=== PATIENT | male | born 1995 | race Caucasian/White ===

== ENCOUNTER 2018-07-31 15:15 | Emergency (ER) | payer SELFPAY ==
[2018-07-31] MEDS ORDERED: Ondansetron 4 MG/2 ML SDV IVPUSH ONE (15:53)
[2018-07-31] MEDS ORDERED: Sodium Chloride 0.9% 1,000 ML IV ONE (15:53)
[2018-07-31] MEDS ORDERED: Ketorolac 30 MG/ML SDV IVPUSH ONE (15:53)
[2018-07-31] MEDS ORDERED: Alum Hydroxide/Mag Hydroxide 30 ML, Lidocaine 2% 15 ML PO ONE ×2 (16:04)
--- NOTE | 2018-07-31 16:08 | EDM.PDOC ---
ED HPI GENERAL MEDICAL PROBLEM - General Chief Complaint: Gastrointestinal Problem Stated Complaint: PUKING BLOOD Time Seen by Provider: 07/31/18 15:30 Source of Information: Reports: Patient, Family History Limitations: Reports: No Limitations - History of Present Illness INITIAL COMMENTS - FREE TEXT/NARRATIVE: c/o vomiting blood here with girlfriend and mother works rotating shifts at [employer], went to bed at 7p last night, up at 4a, mild epigastric discomfort on awakening drank 2 beers at home with a friend, ate some soup, at 7a he had nausea and inc' d epigastric discomfort, he asked his friend to go home and he laid down awoke at 11a, V x 2, soup came up, a short while later he vomiting dark red fluid that he thought was blood, had a second smaller emesis, now comes to ED has slight N now, still epigastric discomfort had a small BM today, yellow in color has a formed brown BM 1-2x/d no prior GI problems he thinks he has an ulcer from what he read on the internet Upper abdomen/epigastric Pain Score (Numeric/FACES): 5 - Related Data Allergies Allergy/AdvReac Type Severity Reaction Status Date / Time No Known Allergies Allergy Verified 07/31/18 15:28 Home Meds: Home Meds Metoclopramide HCl 10 mg PO Q6H PRN #10 tablet 07/31/18 [Rx] Omeprazole 20 mg PO DAILY #14 tablet. 07/31/18 [Rx] Past Medical History Respiratory History: Reports: COPD Genitourinary History: Reports: UTI, Recurrent Other Genitourinary History: freq UTI as child, none now Musculoskeletal History: Reports: Fracture Other Musculoskeletal History: hx fx jaw, R 5th digit, Psychiatric History: Reports: ADD, Addiction, Anxiety, Depression, Panic Attack , Suicide Attempt - Infectious Disease History Infectious Disease History: Reports: Chicken Pox - Past Surgical History GI Surgical History: Reports: Hernia Repair/Other Social & Family History - Family History Family Medical History: Noncontributory - Tobacco Use Smoking Status *Q: Current Every Day Smoker Years of Tobacco use: 10 Packs/Tins Daily: 0.3 - Caffeine Use Caffeine Use: Reports: Coffee, Energy Drinks, Soda, Tea - Alcohol Use Days Per Week of Alcohol Use: 1 Number of Drinks Per Day: 10 Total Drinks Per Week: 10 - Recreational Drug Use Recreational Drug Use: Yes Drug Use in Last 12 Months: Yes Recreational Drug Type: Reports: Marijuana/Hashish Recreational Drug Use Frequency: Daily ED ROS GENERAL - Review of Systems Review Of Systems: See Below Constitutional: Reports: No Symptoms HEENT: Reports: No Symptoms Respiratory: Reports: No Symptoms Cardiovascular: Reports: No Symptoms Endocrine: Reports: No Symptoms GI/Abdominal: Reports: Hematemesis, Nausea, Vomiting : Reports: No Symptoms Musculoskeletal: Reports: No Symptoms Skin: Reports: No Symptoms Neurological: Reports: No Symptoms Psychiatric: Reports: No Symptoms Hematologic/Lymphatic: Reports: No Symptoms Immunologic: Reports: No Symptoms ED EXAM, GI/ABD - Physical Exam Exam: See Below Exam Limited By: No Limitations General Appearance: Alert, WD/WN, No Apparent Distress, Other (alert, nonill, moves easily) Ears: Normal External Exam Nose: Normal Inspection, Normal Mucosa, No Blood Throat/Mouth: Normal Inspection, Normal Lips, Normal Teeth, Normal Gums, Normal Oropharynx, Normal Voice, No Airway Compromise, Other (slight pink flush to posterior pillars b/l c/w with minor irritation from prior emesis) Head: Atraumatic, Normocephalic Neck: Normal Inspection, Supple, Non-Tender, Full Range of Motion Respiratory/Chest: No Respiratory Distress, Lungs Clear, Normal Breath Sounds, No Accessory Muscle Use, Chest Non-Tender Cardiovascular: Regular Rate, Rhythm, No Edema, No JVD, No Murmur GI/Abdominal Exam: Other (1+ epigastric tender, NT elsewhere, NT at Bernardo's point, nl BS x 4) Back Exam: Normal Inspection, Full Range of Motion. No: CVA Tenderness (R), CVA Tenderness (L) Extremities: Normal Inspection, Normal Range of Motion, Non-Tender, No Pedal Edema Neurological: Alert, Oriented, CN II-XII Intact, Normal Cognition, Normal Gait, No Motor/Sensory Deficits Psychiatric: Normal Affect, Normal Mood Skin Exam: Warm, Dry, Intact, Normal Color, No Rash Lymphatic: No Adenopathy Course - Vital Signs Last Recorded V/S: Last Vital Signs Temp 36.4 C 07/31/18 15:20 Pulse 69 07/31/18 15:20 Resp 18 07/31/18 15:20 BP 104/85 07/31/18 15:20 Pulse Ox 98 07/31/18 15:20 Orthostatic Blood Pressure [ 113/65 Standing] Orthostatic Blood Pressure [ 117/70 Sitting] Orthostatic Blood Pressure [ 131/70 Supine] - Orders/Labs/Meds Orders: Active Orders 24 hr Category Date Time Status Orthostatic Vital Signs [RC] ASDIRECTED Care 07/31/18 15:55 Ordered Hemoccult [OCCULT BLOOD DIAGNOSTIC] [OP] Stat Lab 07/31/18 15:55 Ordered Labs: Laboratory Tests 07/31/18 07/31/18 07/31/18 Range/Units 16:35 16:35 16:35 WBC 9.0 (4.5-12.0) X10-3/uL RBC 5.20 (4.30-5.75) x10(6)uL Hgb 15.5 (11.5-15.5) g/dL Hct 44.8 (30.0-51.3) % MCV 86.1 (80-96) fL MCH 29.8 (27.7-33.6) pg MCHC 34.6 (32.2-35.4) g/dL RDW 12.8 (11.5-15.5) % Plt Count 180 (125-369) X10(3)uL MPV 9.1 (7.4-10.4) fL Add Manual Diff Yes Neutrophils % (Manual) 87 H (46-82) % Lymphocytes % (Manual) 7 L (13-37) % Monocytes % (Manual) 6 (4-12) % PT 10.3 (8.7-11.1) INR 1.06 (0.89-1.13) Sodium 136 (135-145) mmol/L Potassium 3.7 (3.5-5.3) mmol/L Chloride 102 (100-110) mmol/L Carbon Dioxide 32 (21-32) mmol/L BUN 11 (7-18) mg/dL Creatinine 1.0 (0.70-1.30) mg/dL Est Cr Clr Drug Dosing 117.93 mL/min Estimated GFR (MDRD) > 60 (>60) BUN/Creatinine Ratio 11.0 (9-20) Glucose 106 (80-116) mg/dL Calcium 9.0 (8.6-10.2) mg/dL Total Bilirubin 0.9 (0.1-1.3) mg/dL AST 21 (5-25) IU/L ALT 23 (12-36) U/L Alkaline Phosphatase 38 L (56-112) IU/L C-Reactive Protein (0.5-0.9) mg/dL Total Protein 7.2 (6.0-8.0) g/dL Albumin 3.8 (3.5-5.2) g/dL Globulin 3.4 g/dL Albumin/Globulin Ratio 1.1 Amylase 30 (25-115) U/L 07/31/18 Range/Units 16:35 WBC (4.5-12.0) X10-3/uL RBC (4.30-5.75) x10(6)uL Hgb (11.5-15.5) g/dL Hct (30.0-51.3) % MCV (80-96) fL MCH (27.7-33.6) pg MCHC (32.2-35.4) g/dL RDW (11.5-15.5) % Plt Count (125-369) X10(3)uL MPV (7.4-10.4) fL Add Manual Diff Neutrophils % (Manual) (46-82) % Lymphocytes % (Manual) (13-37) % Monocytes % (Manual) (4-12) % PT (8.7-11.1) INR (0.89-1.13) Sodium (135-145) mmol/L Potassium (3.5-5.3) mmol/L Chloride (100-110) mmol/L Carbon Dioxide (21-32) mmol/L BUN (7-18) mg/dL Creatinine (0.70-1.30) mg/dL Est Cr Clr Drug Dosing mL/min Estimated GFR (MDRD) (>60) BUN/Creatinine Ratio (9-20) Glucose (80-116) mg/dL Calcium (8.6-10.2) mg/dL Total Bilirubin (0.1-1.3) mg/dL AST (5-25) IU/L ALT (12-36) U/L Alkaline Phosphatase (56-112) IU/L C-Reactive Protein 0.6 (0.5-0.9) mg/dL Total Protein (6.0-8.0) g/dL Albumin (3.5-5.2) g/dL Globulin g/dL Albumin/Globulin Ratio Amylase (25-115) U/L Meds: Medications Discontinued Medications Generic Name Dose Route Start Last Admin Trade Name Freq PRN Reason Stop Dose Admin Al Hydroxide/Mg Hydroxide 30 0 ml 07/31/18 16:04 07/31/18 17:11 ml/ Lidocaine HCl 15 ml PO 07/31/18 16:05 15 ml ONETIME ONE Administration Sodium Chloride 1,000 mls @ 999 mls/hr 07/31/18 15:53 07/31/18 16:19 Normal Saline IV 07/31/18 16:53 999 mls/hr .BOLUS ONE Administration Ketorolac Tromethamine 30 mg 07/31/18 15:53 07/31/18 16:22 Toradol IVPUSH 07/31/18 15:54 30 mg ONETIME ONE Administration Ondansetron HCl 4 mg 07/31/18 15:53 07/31/18 16:19 Zofran IVPUSH 07/31/18 15:54 4 mg ONETIME ONE Administration - Re-Assessments/Exams Free Text/Narrative Re-Assessment/Exam: 07/31/18 17:28 labs all neg with hgb 15.5, pt feeling better, says "my stomach is still churning", however very good BS x 4 and little to no tenderness in epigastric letter mildly orthostatic with decrease in SBP 14 points cannot exclude PUD altho unlikely may have gastritis based on description no stool here, will check Hemoccult x 3 at home scheduled to work next 2d, will keep him off work to give him a chance to heal pt and family agree no indication for imaging Departure - Departure Time of Disposition: 17:31 Disposition: Home, Self-Care 01 Condition: Good Clinical Impression: Gastritis, Mild dehydration - Discharge Information *PRESCRIPTION DRUG MONITORING PROGRAM REVIEWED*: Not Applicable *COPY OF PRESCRIPTION DRUG MONITORING REPORT IN PATIENT PRISCA: Not Applicable Prescriptions: Metoclopramide HCl 10 mg PO Q6H PRN #10 tablet PRN Reason: Nausea Omeprazole 20 mg PO DAILY #14 tablet. Instructions: Gastritis, Adult Forms: ED Department Discharge, ED Return to Work/School Form Additional Instructions: For pain, take acetaminophen 500 mg 2 tabs 4 times a day for 2 days. For nausea, take metoclopramide 10 mg 1 tab every 6 hours as needed. To decrease acid production, take omeprazole 20 mg 1 tab daily for 14 days. To coat and protect the esophagus and stomach, take liquid antacids 30 ml 2 hours after meals and bedtime for 2 days. Increase fluids. Rest. No work for the next 2 days. See your doctor in 2 days. No alcohol. Return to ED if you are feeling worse. Call your Physician or Return to Emergency Department if: * Your condition worsens in any way. * You develop fever greater than 100.4. * You have vomitting that does not stop with medications. * You have pain that is not controlled with medications. - My Orders Last 24 Hours: My Active Orders 07/31/18 15:55 Orthostatic Vital Signs [RC] ASDIRECTED Hemoccult [OCCULT BLOOD DIAGNOSTIC] [OP] Stat - Assessment/Plan Last 24 Hours: My Active Orders 07/31/18 15:55 Orthostatic Vital Signs [RC] ASDIRECTED Hemoccult [OCCULT BLOOD DIAGNOSTIC] [OP] Stat
[2018-07-31] MEDS ORDERED: Omeprazole 20 MG Cap.CR PO ONE (17:35)
[2018-07-31] MEDS ORDERED: Pantoprazole 40 MG Tab.CR PO ONE (18:20)
[2018-07-31] MEDS ORDERED: Pantoprazole 40 MG Tab.CR ONE (18:21)
[2018-07-31 18:37] VITALS: BP 127/70
== END 2018-07-31 18:28 | disposition home or self-care (01) ==
LOC: FB.ED 15:15
DX: K29.70 Gastritis, unspecified, without bleeding (principal); E86.0 Dehydration; J44.9 Chronic obstructive pulmonary disease, unspecified; F17.210 Nicotine dependence, cigarettes, uncomplicated
CPT/HCPCS: 36415; 80053; 82150; 85025; 85610; 86140; 96361; 96374; 96375; 99284; A9270; J1885; J2405; J7030

== ENCOUNTER 2025-04-01 10:45 | Emergency (ER) | payer OTHER ==
[2025-04-01 11:52] VITALS: BP 114/68; PULSE 78
== END 2025-04-01 12:10 | disposition home or self-care (01) ==
LOC: FB.ED 10:45
DX: K04.7 Periapical abscess without sinus (principal); K02.9 Dental caries, unspecified; J44.9 Chronic obstructive pulmonary disease, unspecified; F17.200 Nicotine dependence, unspecified, uncomplicated; Z79.899 Other long term (current) drug therapy
CPT/HCPCS: 99283